=== PATIENT | female | born 1985 | race Caucasian/White ===

== ENCOUNTER 2016-12-01 16:15 | Emergency (ER) | payer OTHER ==
[2016-12-01 17:09] LABS: BASOPHILS 0.4 %; BASOPHILS ABSOLUTE 0.02 10/3/uL (0.0-0.16); EOSINOPHILS 0.2 %; EOSINOPHILS ABSOLUTE 0.01 10/3/uL (0.0-0.53); HEMATOCRIT 38.9 % (36.0-48.0); HEMOGLOBIN 13.3 g/dL (12.0-16.0); LYMPHOCYTES 10.9 %; LYMPHOCYTES ABSOLUTE 0.59 10/3/uL (0.67-4.30); MANUAL DIFF NO %; MEAN CORPUS HGB CONC 34.2 g/dL (32.0-36.0); MEAN CORPUSCULAR HEMOGLOB 30.2 pg (26.0-34.0); MEAN CORPUSCULAR VOLUME 88.4 fL (80-100); MONOCYTES 7.4 %; NEUTROPHILS 81.1 %; NEUTROPHILS ABSOLUTE 4.39 10/3/uL (2.02-8.40); PLATELET COUNT 174 10/3/uL (150-400); RBC DISTRIBUTION WIDTH 13.8 % (12.0-16.0); WHITE BLOOD CELLS 5.4 10/3/uL (4.5-10.5)
[2016-12-01 17:23] LABS: A/G RATIO 1.1 (0.7-1.9); ALBUMIN 4.2 G/DL (3.5-5.0); ALKALINE PHOSPHATASE 51 U/L (45-117); BUN (BLOOD UREA NITROGEN) 8 MG/DL (6-23); CALCIUM, SERUM 9.2 MG/DL (8.5-10.4); CHLORIDE, SERUM 107 MMOL/L (96-112); CO2 (CARBON DIOXIDE) 26 MMOL/L (24-34); CREATININE 0.93 MG/DL (0.55-1.02); GFR AFRICAN AMERICAN 94 ML/MIN (>=60); GFR NON AFRICAN AMERICAN 81 ML/MIN (>=60); GLOBULIN 3.7 G/DL (2.5-4.1); GLUCOSE, SERUM 143 MG/DL (60-99); POTASSIUM, SERUM 3.6 MMOL/L (3.5-5.3); SGPT(ALT) 19 U/L (5-65); SODIUM, SERUM 143 MMOL/L (135-148); TOTAL BILIRUBIN 1.1 MG/DL (0-1.2); TOTAL PROTEIN 7.9 G/DL (6.0-8.5)
[2016-12-01 17:27] LABS: SGOT(AST) 20 U/L (5-40)
== END 2016-12-01 17:55 | disposition home or self-care (01) ==
LOC: ER 16:15
PROVIDERS: Physician Assistant
DX: T88.59XA Other complications of anesthesia, initial encounter (principal); T41.3X5A Adverse effect of local anesthetics, initial encounter; R73.9 Hyperglycemia, unspecified; R00.2 Palpitations; R42 Dizziness and giddiness; R06.00 Dyspnea, unspecified; Z87.442 Personal history of urinary calculi; Z88.8 Allergy status to other drugs, medicaments and biological substances
CPT/HCPCS: 80053; 84703; 85025; 93005; 99285

== ENCOUNTER 2016-12-10 22:00 | Observation (INO) | payer OTHER ==
--- NOTE | ~2016-12-10 | HP ---
History And Physical [id number] [place]. [address] NAME: RICK ELDRIDGE : 83 STATUS : ADM Patricia PAT#: [id number] AGE: 31 ADM/REG DATE : 12/10/16 MR#: [id number] REPORT SERV DATE: 12/11/16 DICTATED BY: DATE: REPORT STATUS : Draft TRANSCRIBED BY: MODL DATE: 12/11/16 DATE OF ADMISSION: 12/10/2016 PRIMARY CARE PROVIDER: Does not have one. TOOL MACHINE SET UP OPERATOR PHYSICIAN: Dr. Giorgio Robert. CHIEF COMPLAINT: Chest pain, shortness of breath, nausea, palpitations. HISTORY OF PRESENT ILLNESS: This is a very pleasant 31-year-old, presumably healthy female without any cardiac history, who presented to the emergency room after being at [facility] in [place], where she is coming back from medication and stopped due to shortness of breath, nausea, palpitations. She denied having any chest pain at that time. She does report that about two weeks ago, she had had an adverse reaction to an anesthetic after a root canal was done and ever since then, she has had these events of shortness of breath, palpitations, nausea, sometimes vomiting, and now she has developed the chest pain. This morning around 6 o'clock, the patient reports she developed chest pain at 10/10 with pressure, shortness of breath, nausea, and feeling like her heart rate was racing, which she reports the symptoms lasted for about 5 minutes and resolved on their own. She did state that "it feels like symptoms are causing panic attacks". She also reports that her palpitations are worse when she turns to her left side and that all of her symptoms have resolved after Ativan IV that she had received at [facility] at one point and then they had reoccurred with the chest pain while here at [facility]. The patient reports that currently she is nauseous and very nervous. She denies any chest pain or pressure. She denies any shortness of breath, vomiting, or diaphoresis. She does state that at [facility], her troponin was elevated at 0.07. The patient also denies any personal history of a myocardial infarction, stroke, DVT, or pulmonary embolus. The patient denies any recent fevers or chills. No palpitations. No syncopal episodes. Denies PND or orthopnea. She denies ever having any panic attacks, anxiety, or any of these symptoms prior to the two weeks ago when she had anesthesia for her dental work. PAST MEDICAL HISTORY: The patient reports to have had acute colitis as a child. PAST SURGICAL HISTORY: C-sections x2. 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 She is and has two children. She denies tobacco use. She denies alcohol use and she denies any illicit drug use. FAMILY HISTORY: Her mother had hypertension. No cardiac history otherwise. Father, no cardiac history. REVIEW OF SYSTEMS: A 14-point review of systems was performed significant for HPI. No other contributory diagnosis identified. History And Physical [address] [address] NAME: RICK ELDRIDGE : 83 STATUS : ADM Patricia PAT#: [id number] AGE: 31 ADM/REG DATE : 12/10/16 MR#: [id number] REPORT SERV DATE: 12/11/16 DICTATED BY: DATE: REPORT STATUS : Draft TRANSCRIBED BY: MODL DATE: 12/11/16 ALLERGIES: EPINEPHRINE FROM SEPTOCAINE, REACTION IS ANXIETY ATTACK. ARTICAINE FROM SEPTOCAINE, REACTION IS ANXIETY ATTACK. HOME MEDICATIONS: Which were started within the last two weeks per patient: 1. BuSpar 5 mg p.o. twice a day. 2. Ativan 0.5 p.o. three times a day p.r.n. PHYSICAL EXAMINATION: VITAL SIGNS: Blood pressure 117/67, heart rate 73, temperature 97.6, respirations 20, O2 saturation 99% on room air. GENERAL: Cooperative, in no apparent distress. HEENT: Head normocephalic, anicteric. Normal EOM. PERRLA. No xanthelasma. Nares patent. Moist mucous membranes. NECK: Trachea midline. No thyromegaly, JVD or bruits. RESPIRATORY: Clear to auscultation bilaterally anterior and posterior. Respirations even and unlabored. No wheezes, rhonchi or crackles. CARDIOVASCULAR: Regular rate and rhythm. No murmur, rub or gallop appreciated. No chest wall tenderness to palpation. ABDOMEN: Soft, nontender, nondistended, normal bowel sounds auscultated throughout. No masses or organomegaly. EXTREMITIES: No peripheral edema. DP/PT and radial pulses palpable bilaterally. No clubbing or cyanosis. SKIN: Warm, dry and intact. Normal turgor. No pallor or cyanosis. NEURO/PSYCH: Alert, oriented x3 with no acute distress. Affect appropriate to current situation. LABORATORY DATA: Troponin x2 have been negative, less than 0.02. Sodium 138, potassium 3.4, BUN 12, creatinine 0.79, GFR 115, glucose 92, calcium 8.9, magnesium 2.0. White blood cells 7.0, hemoglobin 14.3, hematocrit 41.4, platelets 268. INR 1.1. Chest x-ray shows no acute cardiopulmonary disease. Lungs are clear. EKG shows normal sinus rhythm, 78, with a low voltage QRS. monitor worker shows sinus rhythm, 76 at times up to a sinus tach at 105, no ectopy, no arrhythmia, no pauses noted. [facility] lab work shows a troponin of 0.07, their D-dimer shows 156 with a normal range of 150 to 230, which per their lab work shows that the D-dimer is normal. ASSESSMENT AND PLAN: 1. Precordial chest pain. Troponins x2 have been negative less than 0.02. The patient denies any current chest pain or pressure. Reports that it has resolved on its own. Cardiac risk factors are none. Today, due to the patient's symptoms of shortness of breath, tachycardia, and chest pain, we will get a CTA of the chest. Even [facility] D-dimer appears to be normal due to patient's symptoms. We will go ahead and pursue with the CTA of the chest. We will keep the patient n.p.o. in the morning and plan a stress echo if the patient's CTA is negative. If the stress test shows low risk or no ischemia, the patient may be discharged home and follow up with the PCP which we History And Physical [address] [address] NAME: RICK ELDRIDGE : 83 STATUS : ADM Patricia PAT#: [id number] AGE: 31 ADM/REG DATE : 12/10/16 MR#: [id number] REPORT SERV DATE: 12/11/16 DICTATED BY: DATE: REPORT STATUS : Draft TRANSCRIBED BY: MODL DATE: 12/11/16 will assist in arranging due to the patient not having a PCP at this time. We will continue to observe the patient on the front desk monitor while she is on the floor. Today, the patient has been observed in the [facility] to rule out myocardial infarction with serial enzymes and serial EKGs with the patient's troponins as stated earlier have been negative and EKG shows normal sinus rhythm. We will continue to monitor her on the front desk monitor. If the stress test is suggestive of any ischemia in the morning, Cardiology referral will be initiated at that time. 2. Shortness of breath. As stated above, we will get a CTA of the chest due to the patient's shortness of breath, tachycardia, and chest pain to rule out pulmonary embolism. 3. Anxiety/panic attacks. The patient denies ever having any anxiety or panic attacks prior to two weeks ago when she received some anesthesia for dental work and had an adverse anesthesia reaction afterwards. She has since been on BuSpar and Ativan which assist with her anxiety. We will help arrange an appointment with a PCP that will help treat and manage her anxiety and panic attacks as outpatient afterwards. During this time, we will give the patient Ativan x1 IV and we will continue the home medications of BuSpar and Ativan. 4. Palpitations/sinus tach, heart rate ranges between 70 to 80, however it does go up to 100 to 105 sinus tach at times especially when the patient is anxious. We will continue to monitor her on the front desk monitor. The patient's is at her side. We will continue to monitor the patient closely throughout her stay in the [facility]. EKS/MODL Jose Francisco Buck APN / [id number] CC: KITTY Herrera M.D.
[2016-12-10 23:22] LABS: BASOPHILS 0.1 %; BASOPHILS ABSOLUTE 0.01 10/3/uL (0.0-0.16); EOSINOPHILS 0.1 %; EOSINOPHILS ABSOLUTE 0.01 10/3/uL (0.0-0.53); HEMATOCRIT 41.4 % (36.0-48.0); HEMOGLOBIN 14.3 g/dL (12.0-16.0); IMMATURE GRANULOCYTES 0.1 %; IMMATURE GRANULOCYTES ABSOLUTE 0.01 10/3/uL (0.0-0.11); LYMPHOCYTES 19.5 %; LYMPHOCYTES ABSOLUTE 1.37 10/3/uL (0.67-4.30); MEAN CORPUS HGB CONC 34.5 g/dL (32.0-36.0); MEAN PLATELET VOLUME 10.2 fL (9.2-13.0); MONOCYTES 7.4 %; MONOCYTES ABSOLUTE 0.52 10/3/uL (0.21-1.20); NEUTROPHILS 72.8 %; NEUTROPHILS ABSOLUTE 5.11 10/3/uL (2.02-8.40); RBC DISTRIBUTION WIDTH 13.3 % (12.0-16.0); RED CELL COUNT 4.76 10/6/uL (4.0-5.6)
[2016-12-10 23:24] LABS: MANUAL DIFF NO %; PLATELET COUNT 268 10/3/uL (150-400)
[2016-12-10 23:28] LABS: INTERNATIONAL NORMAL RATI 1.1 UNITS (-); PARTIAL THROMBO TIME 26.9 SEC (22.5-37.2); PROTIME (NOT ORD) 13.8 SEC (12.0-14.5)
[2016-12-10 23:40] LABS: BUN (BLOOD UREA NITROGEN) 12 MG/DL (6-23); CALCIUM, SERUM 8.9 MG/DL (8.5-10.4); CHEST PAIN PROFILE TAT 0 Hrs 24 Mins; CHLORIDE, SERUM 106 MMOL/L (96-112); CO2 (CARBON DIOXIDE) 27 MMOL/L (24-34); CREATININE 0.79 MG/DL (0.55-1.02); GFR AFRICAN AMERICAN 115 ML/MIN (>=60); GFR NON AFRICAN AMERICAN 99 ML/MIN (>=60); GLUCOSE, SERUM 92 MG/DL (60-99); POTASSIUM, SERUM 3.4 MMOL/L (3.5-5.3); SODIUM, SERUM 138 MMOL/L (135-148); TROPONIN I <0.02 NG/ML (<0.05)
[2016-12-11] MEDS ORDERED: BUSPAR5 PO (09:50)
[2016-12-11] MEDS ORDERED: ATV.5 PO (09:51)
[2016-12-12] MEDS ORDERED: ATEN25 PO (17:28)
== END 2016-12-12 18:04 | disposition home or self-care (01) ==
LOC: ER 22:00 → CDU1 23:59
PROVIDERS: Emergency Medicine
DX: R07.2 Precordial pain (principal); R06.02 Shortness of breath; F41.9 Anxiety disorder, unspecified; F41.0 Panic disorder [episodic paroxysmal anxiety]; R00.2 Palpitations; R00.0 Tachycardia, unspecified; Z98.890 Other specified postprocedural states; Z88.8 Allergy status to other drugs, medicaments and biological substances; Z79.899 Other long term (current) drug therapy; Z87.442 Personal history of urinary calculi
CPT/HCPCS: 71020; 71275; 80048; 83735; 84443; 84484; 84703; 85025; 85610; 85730; 93005; 93017; 93225; 93350; 96374; 96375; 96376; 99285; A9270-GY; G0378; J2405; Q9967

== ENCOUNTER 2016-12-15 15:47 | Inpatient (IN) | payer OTHER ==
--- NOTE | ~2016-12-15 | CN ---
Consultation Report [id number] [place]. [address] NAME: RICK ELDRIDGE : 83 STATUS : ADM Patricia PAT#: [id number] AGE: 31 ADM/REG DATE : 12/15/16 MR#: [id number] REPORT SERV DATE: 12/16/16 DICTATED BY: BRODERICK VELAZQUEZ DATE: 12/16/16 REPORT STATUS : Draft TRANSCRIBED BY: MORE DATE: 12/16/16 PSYCHIATRIC CONSULTATION DATE OF CONSULTATION: 12/16/2016 I reviewed this patient's medical record. I discussed her status with her who was at the bedside. HISTORY OF PRESENT ILLNESS: She was admitted with a history of recurring bouts of anxiety with shortness of breath, palpitations, and nausea, since she had dental procedures about two weeks ago. She had her first panic attack when she was given a local anesthetic. PAST PSYCHIATRIC HISTORY: She reports no pre-existing depression or anxiety problem. She said she had experienced some social anxiety in certain situations in the past, but she felt this was normal in degree and quality. FAMILY HISTORY: Her mother suffered from panic attacks and agoraphobia. SOCIAL HISTORY: She is in a stable supportive marriage of five years. She has two children. 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 MENTAL STATUS: She was cooperative, but she was very fearful of any new medication intervention in case it triggered a recurrence of orthostasis. Her mood was anxious. Her affect was full and appropriate. Her thinking was logical. She had no delusions. She had no hallucinations. She was oriented to time, place, and person. DIAGNOSIS: Panic disorder, new onset. RECOMMENDATIONS: 1. Discontinue Paxil. 2. Start Zoloft 25 mg p.o. daily. Plan to gradually increase this as tolerated. 3. Xanax 0.25 mg b.i.d. and 0.5 mg at bedtime. 4. I will see her for a followup visit on 12/19/2016. DOLORES/MORE Broderick Velazquez M.D. / [id number] CC: Priya De Anda M.D.
--- NOTE | ~2016-12-15 | HP ---
History And Physical [id number] [facility] [place]. [address] NAME: RICK ELDRIDGE : 83 STATUS : ADM Patricia PAT#: [id number] AGE: 31 ADM/REG DATE : 12/15/16 MR#: [id number] REPORT SERV DATE: 12/16/16 DICTATED BY: ALICIA CAMPBELL DATE: 12/16/16 REPORT STATUS : Draft TRANSCRIBED BY: MODL DATE: 12/16/16 DATE OF ADMISSION: 12/15/2016 CHIEF COMPLAINT: A 31-year-old female with no primary care physician, presenting with recurrent tachycardia, orthostasis, and anxiety. HISTORY OF PRESENT ILLNESS: The patient's history was obtained through careful interview with the patient and her , coupled with review of [facility] medical records. The patient's history of this current illness seems to have begun approximately two weeks ago when she had some kind of dental procedure and was given apparently Septocaine. Over a two-day period of time she apparently had two root canals and seemed to have a bad reaction to a medication. She describes initially having shortness of breath and palpitations, and significant nausea, and new onset "anxiety attacks." She initially went to the emergency department after these symptoms came on (almost immediately after the dental procedure) and was given BuSpar and p.r.n. Ativan. She was taking the BuSpar and p.r.n. Ativan and continued to have "anxiety attacks" with palpitations and shortness of breath. Then, she and her family went on a vacation at [place] at the [place], and during that time she began to develop chest pain, shortness of breath, palpitations, and stiffness into her jaw. They got so bad that she actually went to an emergency department in the [place] area, but was thought to again be just suffering from "anxiety attacks". When she and her family were coming back home from [place] they were driving through [place], and she had such severe nausea and vomiting, another anxiety attack that she had to stop at [facility], and actually from there was transferred to our facility on 12/11/2016 for chest pain observation. She was hospitalized here and had a negative cardiac stress echocardiogram on 12/12/2016 and was discharged home without BuSpar and to use p.r.n. Ativan. Unfortunately, she has continued to have daily severe constant nausea. She believes that her ribs have begun to hurt because of retching, about a 5/10 severity. Over the last week, she has lost 8 pounds. Now, the patient has continued to have orthostasis, she was told to start some atenolol, but she has been holding this medication for a few days because of the symptoms and has also not taken a dose of Ativan for about 24 hours now. She discontinued the BuSpar perhaps a week ago. REVIEW OF SYSTEMS: Otherwise, a 14-point review of systems was obtained, was negative. PAST MEDICAL HISTORY: History And Physical [address] [address] NAME: RICK ELDRIDGE : 83 STATUS : ADM Patricia PAT#: [id number] AGE: 31 ADM/REG DATE : 12/15/16 MR#: [id number] REPORT SERV DATE: 12/16/16 DICTATED BY: ALICIA CAMPBELL DATE: 12/16/16 REPORT STATUS : Draft TRANSCRIBED BY: MORE DATE: 12/16/16 1. Nephrolithiasis. 2. Negative stress echocardiogram, cardiac evaluation in November 2016. 3. Anxiety. PAST SURGICAL HISTORY: 1. x2. 2. Tubal ligation. ALLERGIES: APPARENTLY TO SEPTOCAINE. SOCIAL HISTORY: No tobacco abuse. No alcohol abuse. She is . 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 She lives in [place], [place], with her . They have two children, ages 1 and 8 years old. FAMILY HISTORY: Diabetes and cancer. CURRENT MEDICATIONS: The patient has stopped taking atenolol 25 mg p.o. daily, and stopped taking Ativan 0.5 mg twice a day, p.r.n., but she continues to take Paxil 20 mg p.o. daily. PHYSICAL EXAMINATION: VITAL SIGNS: Temperature 97.5, pulse 75, blood pressure 127/75, respiratory rate 12, and O2 saturation 100% on room air. When the patient stands up, on orthostatics her pulse increases to 113 and her blood pressure drops to 104/73, and she becomes symptomatic. GENERAL: A pleasant, cooperative female, mostly anxious because of concern over her possible medical conditions, but in no evidence of acute distress. HEENT: Pupils equal, round, and reactive to light. No conjunctival pallor. No scleral icterus. Nares are patent. Oropharynx is clear of obstruction. Moist mucous membranes. NECK: Trachea midline. No thyromegaly. LYMPH: No cervical lymphadenopathy. No supraclavicular lymphadenopathy. RESPIRATORY: Clear to auscultation at bases. No wheezes, rales, or rhonchi. Normal respiratory effort. CARDIOVASCULAR: Regular rate and rhythm. No murmurs, rubs, or gallops. No current extremity edema is appreciated. ABDOMEN: Soft, nontender, and nondistended. Normal bowel sounds auscultated throughout. No hepatosplenomegaly. DERMATOLOGICAL: Warm and dry extremities. No pallor. No cyanosis. PSYCHIATRIC: The patient has an anxious affect and mood, but she is alert and oriented x3. LABORATORY DATA: Serum test negative. INR 1.1. Troponin negative. White blood cell count 5.7, hemoglobin 14, hematocrit 41, and platelets 286. Sodium 139, potassium 3.7, chloride 105, bicarb 27, BUN 11, creatinine 0.63, and glucose 100. STUDIES: 1. CT angiogram of the chest on 12/11/2016 was negative. History And Physical [address] [address] NAME: RICK ELDRIDGE : 83 STATUS : ADM Patricia PAT#: [id number] AGE: 31 ADM/REG DATE : 12/15/16 MR#: [id number] REPORT SERV DATE: 12/16/16 DICTATED BY: ALICIA CAMPBELL DATE: 12/16/16 REPORT STATUS : Draft TRANSCRIBED BY: MORE DATE: 12/16/[address] of the abdomen and pelvis shows no acute abdominal process. 3. EKG by my own evaluation shows sinus rhythm, no major abnormalities. 4. A chest x-ray by my own evaluation shows no acute cardiopulmonary process. ASSESSMENT AND PLAN: 1. Orthostasis. Check thyroid panel. Check cortisol level. Place on IV fluids. Question some unknown endocrine or inflammatory process? Consider trying Florinef ? 2. Adverse drug reaction. I would like to hold Ativan now though. 3. Anxiety. I would like to obtain a Psychiatry consult with Dr. Amin. Continue Paxil for now. KPL/MODL Alicia Campbell M.D. / [id number] CC: Berry Storey M.D.
--- NOTE | ~2016-12-15 | DS ---
Discharge Summary [facility] [address] [place]. [address] NAME: RICK ELDRIDGE : 83 STATUS : DIS IN PAT#: [id number] AGE: 31 ADM/REG DATE : 12/15/16 MR#: [id number] REPORT SERV DATE: 12/20/16 DICTATED BY: TOMMY HAYES DATE: 12/19/16 REPORT STATUS : Draft TRANSCRIBED BY: MODL DATE: 12/19/16 ADMISSION DATE: 12/15/2016 DISCHARGE DATE: 12/19/2016 DISCHARGE DIAGNOSES: 1. Orthostasis, now resolved. 2. Dehydration, now resolved. 3. May be adverse drug reaction. 4. Panic disorder, new onset. 5. Nausea and vomiting, resolved. BRIEF HISTORY OF PRESENT ILLNESS: The patient is a 31-year-old female, apparently had some sort of a dental procedure, was given Stypto-Ever and then started having panic attacks. Because she was here, she had gone through several bouts of nausea, vomiting, diarrhea, and had dehydration, so she was admitted. For detailed history and physical exam, please see note dictated by Dr. Robin Negrete on 12/15/2016. HOSPITAL COURSE: After being admitted to the hospital, this patient was found to be orthostatic. She was given copious amounts of IV fluids. Her blood pressure stabilized. Her heart rate, over the last three days, has remained fairly stable. Dr. Amin saw the patient in consultation, diagnosed her with panic disorder, new onset, started her on Xanax and Zoloft. Initially, the patient did not want to take the Zoloft as she was not tolerant to Paxil in the past, so it has been now switched to Remeron. This patient says she does not want to take Xanax if she does not have to. I have asked her to use Xanax only when things get really worse. I would avoid using beta blockers as she is already bradycardic. This patient is still concerned as to why this has happened. I have reassured her that this may take some time and may be an effect of the medication. Once she takes her Remeron, this should significantly improve. Dr. Amin has signed off her care as well. Her orthostasis has resolved and she is stable from a medical standpoint to return home. DISCHARGE DISPOSITION: Home. DISCHARGE ACTIVITY: As tolerated. DISCHARGE DIET: A low-sodium diet. DISCHARGE MEDICATIONS: Remeron 15 mg one tablet at bedtime, Xanax 0.5 mg half a tablet three times daily p.r.n. for anxiety; Zofran 4 mg ODT p.r.n. for nausea #30 with no refills given. DISCHARGE FOLLOWUP: I have recommended that the patient followup with the primary care physician in the outpatient setting. More than 30 minutes spent planning this patient's discharge, reconciling medications, writing prescriptions, discussing hospital care, and followup with the patient and the at the bedside. Discharge Summary [address] [address] NAME: RICK ELDRIDGE : 83 STATUS : DIS IN PAT#: [id number] AGE: 31 ADM/REG DATE : 12/15/16 MR#: [id number] REPORT SERV DATE: 12/20/16 DICTATED BY: TOMMY HAYES DATE: 12/19/16 REPORT STATUS : Draft TRANSCRIBED BY: MORE DATE: 12/19/16 DICTATED BY: Austin Aj/MORE Tommy Hayes M.D. / [id number] CC: Tommy Hayes M.D.
[~2016-12-15 15:47] MED LIST: ATEN25 PO; ATV.5 PO; BUSPAR5 PO
[2016-12-15 17:01] LABS: BASOPHILS 0.2 %; BASOPHILS ABSOLUTE 0.01 10/3/uL (0.0-0.16); EOSINOPHILS 0 %; ER CBC TAT 0 Hrs 03 Mins; HEMATOCRIT 41.2 % (36.0-48.0); HEMOGLOBIN 14.4 g/dL (12.0-16.0); IMMATURE GRANULOCYTES 0.2 %; IMMATURE GRANULOCYTES ABSOLUTE 0.01 10/3/uL (0.0-0.11); LYMPHOCYTES 15.2 %; LYMPHOCYTES ABSOLUTE 0.86 10/3/uL (0.67-4.30); MEAN CORPUSCULAR HEMOGLOB 30.3 pg (26.0-34.0); MEAN CORPUSCULAR VOLUME 86.6 fL (80-100); MEAN PLATELET VOLUME 9.8 fL (9.2-13.0); MONOCYTES 5.7 %; MONOCYTES ABSOLUTE 0.32 10/3/uL (0.21-1.20); NEUTROPHILS 78.7 %; NEUTROPHILS ABSOLUTE 4.46 10/3/uL (2.02-8.40); PLATELET COUNT 286 10/3/uL (150-400); RBC DISTRIBUTION WIDTH 13.3 % (12.0-16.0); RED CELL COUNT 4.76 10/6/uL (4.0-5.6); WHITE BLOOD CELLS 5.7 10/3/uL (4.5-10.5)
[2016-12-15 17:02] LABS: MANUAL DIFF NO %
[2016-12-15 17:17] LABS: INTERNATIONAL NORMAL RATI 1.1 UNITS (-); PARTIAL THROMBO TIME 26.7 SEC (22.5-37.2); PROTIME (NOT ORD) 13.9 SEC (12.0-14.5)
[2016-12-15 17:18] LABS: BUN (BLOOD UREA NITROGEN) 11 MG/DL (6-23); CALCIUM, SERUM 9.3 MG/DL (8.5-10.4); CHEST PAIN PROFILE TAT 0 Hrs 20 Mins; CHLORIDE, SERUM 105 MMOL/L (96-112); CO2 (CARBON DIOXIDE) 27 MMOL/L (24-34); CREATININE 0.63 MG/DL (0.55-1.02); GFR AFRICAN AMERICAN 138 ML/MIN (>=60); GFR NON AFRICAN AMERICAN 119 ML/MIN (>=60); GLUCOSE, SERUM 100 MG/DL (60-99); POTASSIUM, SERUM 3.7 MMOL/L (3.5-5.3); SODIUM, SERUM 139 MMOL/L (135-148); TROPONIN I <0.02 NG/ML (<0.05)
[2016-12-15] MEDS ORDERED: PAX20 PO (21:39)
[2016-12-15] MEDS ORDERED: ATEN25 PO (21:39)
[2016-12-15] MEDS ORDERED: ATV.5 PO (21:40)
[2016-12-16 05:26] LABS: HEMATOCRIT 38.4 % (36.0-48.0); HEMOGLOBIN 13.4 g/dL (12.0-16.0); MEAN CORPUS HGB CONC 34.9 g/dL (32.0-36.0); MEAN CORPUSCULAR HEMOGLOB 30.7 pg (26.0-34.0); MEAN CORPUSCULAR VOLUME 87.9 fL (80-100); MEAN PLATELET VOLUME 10.8 fL (9.2-13.0); PLATELET COUNT 277 10/3/uL (150-400); RBC DISTRIBUTION WIDTH 13.2 % (12.0-16.0); RED CELL COUNT 4.37 10/6/uL (4.0-5.6); WHITE BLOOD CELLS 4.6 10/3/uL (4.5-10.5)
[2016-12-16 05:32] LABS: MANUAL DIFF YES %
[2016-12-16 05:47] LABS: INTERNATIONAL NORMAL RATI 1.1 UNITS (-); PARTIAL THROMBO TIME 32.6 SEC (22.5-37.2); PROTIME (NOT ORD) 14.5 SEC (12.0-14.5)
[2016-12-16 05:48] LABS: A/G RATIO 1.2 (0.7-1.9); ALBUMIN 3.8 G/DL (3.5-5.0); ALKALINE PHOSPHATASE 51 U/L (45-117); BUN (BLOOD UREA NITROGEN) 8 MG/DL (6-23); CHLORIDE, SERUM 105 MMOL/L (96-112); CO2 (CARBON DIOXIDE) 29 MMOL/L (24-34); CPK 53 U/L (0-200); CREATININE 0.67 MG/DL (0.55-1.02); FREE T4 1.23 NG/DL (0.76-1.46); GFR AFRICAN AMERICAN 135 ML/MIN (>=60); GFR NON AFRICAN AMERICAN 116 ML/MIN (>=60); GLOBULIN 3.3 G/DL (2.5-4.1); GLUCOSE, SERUM 91 MG/DL (60-99); POTASSIUM, SERUM 3.9 MMOL/L (3.5-5.3); SGOT(AST) 12 U/L (5-40); SGPT(ALT) 17 U/L (5-65); SODIUM, SERUM 139 MMOL/L (135-148); TOTAL PROTEIN 7.1 G/DL (6.0-8.5); TROPONIN I <0.02 NG/ML (<0.05)
[2016-12-16 05:50] LABS: C-REACTIVE PROTEIN < 2.9 MG/L (<8.0); CK-MB < 0.5 NG/ML; TOTAL BILIRUBIN 1.6 MG/DL (0-1.2)
[2016-12-16 07:19] LABS: BAND NEUTROPHILS 10 %; EOSINOPHILS 1 %; EOSINOPHILS ABSOLUTE (CALC) 0.05 10/3/uL (0.0-0.53); LYMPHOCYTES 20 %; LYMPHOCYTES ABSOLUTE (CALC) 0.92 10/3/uL (0.67-4.30); MONOCYTES 8 %; MONOCYTES ABSOLUTE (CALC) 0.37 10/3/uL (0.21-1.20); NEUTROPHILS ABSOLUTE (CALC) 3.27 10/3/uL (2.02-8.40); PLATELET ESTIMATE ADQ (ADEQUATE); RBC MORPHOLOGY NORM (NORMAL); SEGMENTED NEUTROPHIL (0) 61 %; TOTAL NUCLEATED CELLS 100
[2016-12-16 10:07] LABS: HCG SERUM QUALITATIVE NEG (NEG)
[2016-12-16 10:16] LABS: FREE T4 1.22 NG/DL (0.76-1.46)
[2016-12-16 10:22] LABS: CORTISOL AM 25.8 UG/DL (4.3-22.4)
[2016-12-16 10:53] LABS: WBC (NOT ORDERED) (RFLEX) 0 (0-5)
[2016-12-16 11:11] LABS: ASCORBIC ACID (UR NOT ORDER) NEG (NEG); BILIRUBIN, URINE NEGATIVE (NEG); KETONE, URINE NEGATIVE (NEG); LEUKOCYTE ESTERASE(NOT OR NEG (NEG)
[2016-12-16 11:26] LABS: AMPHETAMINES (NOT ORD) NEG (NEG); BARBITURATES (NOT ORDERED NEG (NEG); BENZODIAZEPINES (NOT ORD) NEG (NEG); CANNABINOIDS (THC) NEG (NEG); COCAINE (NOT ORDERED) NEG (NEG); OPIATES NEG (NEG); PHENCYCLIDINE(PCP) NEG (NEG); TRICYCLICS NEG (NEG)
[2016-12-18 05:50] LABS: A/G RATIO 1.2 (0.7-1.9); ALBUMIN 3.3 G/DL (3.5-5.0); ALKALINE PHOSPHATASE 43 U/L (45-117); BUN (BLOOD UREA NITROGEN) 6 MG/DL (6-23); CALCIUM, SERUM 8.7 MG/DL (8.5-10.4); CHLORIDE, SERUM 110 MMOL/L (96-112); CO2 (CARBON DIOXIDE) 28 MMOL/L (24-34); CREATININE 0.58 MG/DL (0.55-1.02); GFR AFRICAN AMERICAN 141 ML/MIN (>=60); GFR NON AFRICAN AMERICAN 122 ML/MIN (>=60); GLOBULIN 2.8 G/DL (2.5-4.1); GLUCOSE, SERUM 89 MG/DL (60-99); POTASSIUM, SERUM 3.2 MMOL/L (3.5-5.3); SGOT(AST) 11 U/L (5-40); SGPT(ALT) 14 U/L (5-65); SODIUM, SERUM 144 MMOL/L (135-148); TOTAL BILIRUBIN 1.3 MG/DL (0-1.2); TOTAL PROTEIN 6.1 G/DL (6.0-8.5)
[2016-12-19] MEDS ORDERED: REM15 PO (15:06)
[2016-12-19] MEDS ORDERED: X5 PO (15:08)
[2016-12-19] MEDS ORDERED: ZOFRAN4 PO (15:09)
== END 2016-12-19 16:24 | disposition home or self-care (01) | DRG 880 ==
LOC: ER 15:47 → 7NO 21:36
PROVIDERS: Emergency Medicine; Hospitalist; Internal Medicine
DX: F41.0 Panic disorder [episodic paroxysmal anxiety] (principal); E86.0 Dehydration; R63.4 Abnormal weight loss; R11.2 Nausea with vomiting, unspecified; T41.3X5A Adverse effect of local anesthetics, initial encounter; Z87.442 Personal history of urinary calculi; Z68.22 Body mass index [BMI] 22.0-22.9, adult
CPT/HCPCS: 71020; 74176; 76705; 80048; 80053; 80305; 81001; 82384; 82533; 82550; 82553; 83735; 83880; 84439; 84443; 84481; 84484; 84703; 85025; 85610; 85652; 85730; 86140; 93005; 99285; A9270-GY; C9113; J2405